=== PATIENT | male | born 1980 | race Caucasian/White ===

== ENCOUNTER 2021-04-24 20:34 | Emergency (ER) | payer SELFPAY ==
[~2021-04-24] VITALS: Ht 175.3 cm; Wt 72.6 kg
== END 2021-04-24 23:36 | disposition home or self-care (01) ==
LOC: ED 20:34
DX: R07.89 Other chest pain (principal); R51.9 Headache, unspecified
CPT/HCPCS: 36415; 80048; 81001; 84443; 84484; 85025; 99285; G0480

== ENCOUNTER 2021-06-08 13:41 | Emergency (ER) | payer SELFPAY ==
[~2021-06-08] VITALS: Ht 175.3 cm; Wt 68.0 kg
[2021-06-08] MEDS ORDERED: PENICILLIN V P500 MG PO (16:00)
--- NOTE | 2021-06-08 18:44 | EKG ---
[facility] [address] [facility] [place], [place] [address] Signed Normal sinus rhythm with sinus arrhythmia Minimal voltage criteria for LVH, may be normal variant ( Andrea product ) Borderline ECG No previous ECGs available Confirmed by JOSEPH CHI MD ([id number]) on 06/08/2021 6:44:11 PM Electronically Signed By: JOSEPH CHI MD 06/08/21 1844 PATIENT NAME: JIGNESH ASHLEY Electrocardiogram DATE OF : 78 PHYSICIAN: JOSEPH CHI MD REPORT #: [id number] REPORT IS CONFIDENTIAL AND NOT TO BE RELEASED WITHOUT AUTHORIZATION
== END 2021-06-08 16:14 | disposition home or self-care (01) ==
LOC: ED 13:41
DX: K04.7 Periapical abscess without sinus (principal); Z20.822 Contact with and (suspected) exposure to COVID-19
CPT/HCPCS: 36415; 80048; 85025; 93005; 93010; 96374; 99283-25; C9803; J1885; J7030; U0003